=== PATIENT | female | born 1975 | race Two or more races ===

== ENCOUNTER 2024-03-16 10:09 | Emergency (ER) | payer OTHER ==
[~2024-03-16] VITALS: Ht 154.9 cm; Wt 72.6 kg
[~2024-03-16 10:09] MED LIST: ALBUTEROL2.5 MG/3 M IH; TUSNEL LIQUID178 ML PO; ZYRTEC10 MG PO
[2024-03-16] MEDS ORDERED: TETANUS & DIPHTHERIA TOX,ADULT 0.5 ML VIAL IM ONE (11:00)
[2024-03-16] MEDS ORDERED: BACITRACIN-NEOMYCIN-POLYMYXIN 0.9 GM PACKET TOP ONE (11:14)
== END 2024-03-16 11:50 | disposition home or self-care (01) ==
LOC: ER 10:10
DX: S61.301A Unspecified open wound of left index finger with damage to nail, initial encounter (principal); L60.1 Onycholysis

== ENCOUNTER 2024-06-01 09:07 | Outpatient (CLI) | payer OTHER ==
[2024-06-01 10:14] LABS: HEMATOCRIT 39.7 % (36.0-45.00); HEMOGLOBIN 13.4 g/dL (12.0-15.00); MEAN CELL VOLUME 93.4 fL (80.00-100.00); MEAN CORPUSCULAR HEMOGLOBIN 31.4 pg (27.00-32.0); MEAN CORPUSCULAR HGB CONC 33.6 g/dl (32.0-36.0); PLATELET COUNT 324 K/uL (150-450); RED BLOOD COUNT 4.25 M/uL (4.00-6.00); RED CELL DISTRIBUTION WIDTH 12.6 % (11.5-14.5)
[2024-06-01 10:18] LABS: PH,URINE 6.5 (5.0-8.0); URINE APPEARANCE Clear; URINE BILIRRUBIN Negative (NEGATIVE); URINE BLOOD Large; URINE COLOR Yellow; URINE GLUCOSE Negative (NEGATIVE); URINE KETONE Negative (NEGATIVE); URINE LEUKOCYTE Trace; URINE NITRATE Negative; URINE PROTEIN 30 (NEGATIVE); URINE UROBILINOGEN 0.2 E.U./dl
[2024-06-01 10:22] LABS: URINE BACTERIA 2579.1 uL (0.0-1933); URINE EPITHELIAL CELLS 41.2 uL (0.0-38.8); URINE RBC 107.3 uL (0.0-20.8); URINE WBC 86.5 uL (0.0-23.2)
[2024-06-01 10:30] LABS: URINE CAST 0.15 uL (0.0-1.40)
[2024-06-01 11:03] LABS: ALBUMIN 3.6 gm/dL (3.4-5.0); BILIRUBIN TOTAL 0.72 mg/dL (0.3-1.2); CALCIUM 8.7 mg/dL (8.5-10.1); CHOL HDL RATIO 1.9 (0-5.0); CREATININE SERUM 0.65 mg/dL (0.55-1.02); GFR 96.48; GLOBULINA 3.4 G/DL (2.4-3.5); POTASSIUM 4.54 mEq/L (3.5-5.1); TSH 1.88 uIU/mL (0.358-3.74)
[2024-06-02 09:12] LABS: ob NEGATIVE (NEGATIVE)
== END 2024-06-01 09:08 | disposition home or self-care (01) ==
LOC: LAB 09:07
PROVIDERS: ATTEND Obstetrics & Gynecology
DX: R53.1 Weakness (principal); R30.0 Dysuria; E55.9 Vitamin D deficiency, unspecified; E11.9 Type 2 diabetes mellitus without complications; E03.0 Congenital hypothyroidism with diffuse goiter; E78.2 Mixed hyperlipidemia; R10.2 Pelvic and perineal pain; Z12.11 Encounter for screening for malignant neoplasm of colon; C56.1 Malignant neoplasm of right ovary

== ENCOUNTER 2024-06-01 10:18 | Outpatient (CLI) | payer OTHER | END 2024-06-01 10:21 | disposition home or self-care (01) | LOC: MAMO-SONO 10:18 | PROVIDERS: ATTEND Obstetrics & Gynecology | DX: N60.21 Fibroadenosis of right breast (principal); N60.12 Diffuse cystic mastopathy of left breast; Z12.31 Encounter for screening mammogram for malignant neoplasm of breast ==

== ENCOUNTER 2024-06-04 13:51 | Outpatient (CLI) | payer OTHER | END 2024-06-04 13:52 | disposition home or self-care (01) | LOC: SONOGRAMA 13:51 | PROVIDERS: ATTEND Obstetrics & Gynecology | DX: N92.1 Excessive and frequent menstruation with irregular cycle (principal) ==

== ENCOUNTER → 2024-06-08 09:39 | Outpatient (CLI) | payer OTHER ==
[2024-06-08 11:33] LABS: ALBUMIN 3.6 gm/dL (3.4-5.0); BILIRUBIN TOTAL 0.47 mg/dL (0.3-1.2); CALCIUM 8.7 mg/dL (8.5-10.1); CREATININE SERUM 0.6 mg/dL (0.55-1.02); GFR 105.82; GLOBULINA 3.4 G/DL (2.4-3.5); POTASSIUM 3.73 mEq/L (3.5-5.1)
== END | disposition home or self-care (01) ==
LOC: LAB 09:39
PROVIDERS: ATTEND Obstetrics & Gynecology
DX: R10.2 Pelvic and perineal pain (principal)

== ENCOUNTER 2025-03-26 07:42 | Outpatient (CLI) | payer OTHER ==
[2025-03-26 09:03] LABS: BASO % 1.4 % (0.1-1.2); EOS # 0.11 (0.04-0.54); EOS % 1.9 % (0.7-7.0); LYMPH # 2.02 (1.18-3.74); LYMPH % 34.4 % (19.3-53.1); MEAN PLATELET VOLUME 9.90 fl (9.4-12.4); MONO # 0.39 (0.24-0.82); MONO % 6.6 % (4.7-12.5); NEUT # 3.26 (1.56-6.13); NEUT % 55.5 % (34.0-71.1); RED CELL DISTRIBUTION WIDTH 12.5 % (11.6-14.4)
[2025-03-26 09:05] LABS: URINE APPEARANCE Clear; URINE BILIRRUBIN Negative (NEGATIVE); URINE BLOOD Negative; URINE COLOR Yellow; URINE GLUCOSE Negative (NEGATIVE); URINE KETONE Negative (NEGATIVE); URINE LEUKOCYTE Small; URINE NITRATE Negative; URINE PROTEIN Negative (NEGATIVE); URINE UROBILINOGEN 0.2 E.U./dl
[2025-03-26 09:07] LABS: URINE BACTERIA 2937.6 uL (0.0-1933); URINE EPITHELIAL CELLS 18.7 uL (0.0-38.8); URINE RBC 7.6 uL (0.0-20.8); URINE WBC 125.0 uL (0.0-23.2)
[2025-03-26 09:27] LABS: URINE CAST 0.14 uL (0.0-1.40)
[2025-03-26 09:59] LABS: ALT/SGPT 17.0 U/L (12-78); AST/SGOT 12.0 U/L (15-37); BILIRUBIN TOTAL 0.77 mg/dL (0.3-1.2); BUN CREA RATIO 22.0 (7.0-25.0); CHOL HDL RATIO 1.9 (0-5.0); CREATININE SERUM 0.68 mg/dL (0.55-1.02); FE 154.0 ug/dl (50-170); GFR 91.22; GLOBULINA 3.5 G/DL (2.4-3.5); GLUCOSE FASTING 90.0 mg/dL (65-100); HDL 85.0 mg/dl (40-60); LDL 66.0 mg/dl (0-130); OSMOLALITY SERUM 283.0 MOSM/KG (275-295); TSH 1.44 uIU/mL (0.358-3.74); VLDL 11.0 (0-39)
[2025-03-26 10:48] LABS: FOLIC ACID 12.15 ng/ml (4.78-20); VITAMIN D3 25 HYDROXY 19.2 ng/ml (30-120)
== END 2025-03-26 07:43 | disposition home or self-care (01) ==
LOC: LAB 07:42
DX: E11.9 Type 2 diabetes mellitus without complications (principal); E03.9 Hypothyroidism, unspecified; E78.00 Pure hypercholesterolemia, unspecified; E55.0 Rickets, active; D46.4 Refractory anemia, unspecified; D50.0 Iron deficiency anemia secondary to blood loss (chronic); D51.0 Vitamin B12 deficiency anemia due to intrinsic factor deficiency